=== PATIENT | male | born 1985 | race Hispanic/Latino ===

== ENCOUNTER 2022-11-10 20:03 | Emergency (ER) | payer BC, MEDICAID ==
[~2022-11-10] VITALS: Ht 177.8 cm; Wt 104.3 kg
[2022-11-10] MEDS ORDERED: SOLU-MEDROL 125MG VIAL IVP ONE (20:30)
[2022-11-10] MEDS ORDERED: DiphenhydrAMINE HCL 50 MG/ML VIAL IV ONE (20:30)
[2022-11-10] MEDS ORDERED: EPINEPHRINE PF 1MG (1:1,000) 1 MG/ML AMP IM ONE (20:30)
[2022-11-10] MEDS ORDERED: FAMOTIDINE 20MG VIAL IV ONE (20:30)
[2022-11-10 20:43] VITALS: BP 114/63
[2022-11-10] MEDS ORDERED: PRED20TA3 PO (21:10)
[2022-11-10] MEDS ORDERED: DIPH50 PO (21:10)
[2022-11-10] MEDS ORDERED: FAMO-136 PO (21:10)
== END 2022-11-10 21:32 | disposition home or self-care (01) ==
LOC: EDH 20:03
DX: T80.59XA Anaphylactic reaction due to other serum, initial encounter (principal); W57.XXXA Bitten or stung by nonvenomous insect and other nonvenomous arthropods, initial encounter; Y93.89 Activity, other specified; Y92.89 Other specified places as the place of occurrence of the external cause; Y99.8 Other external cause status
CPT/HCPCS: 99284; 96374; 96375; 96372; J1200; J3490; J2930; J0171